=== PATIENT | male | born 1975 | race African-American/Black ===

== ENCOUNTER 2019-07-03 22:52 | Emergency (ER) | payer OTHER ==
[2019-07-03] MEDS ORDERED: oxyCODONE/Acetamin 5/325 MG* TAB PO ONE (23:47)
--- NOTE | 2019-07-03 23:48 | ED ---
Lower Extremity - HPI Summary HPI Summary: Pt is a 43 y/o M presenting to the ED with a chief complaint of RLE pain. He states he fell down the stairs at 22:40 and he is reporting RLE pain and edema. He denies fever. - History of Current Complaint Chief Complaint: EDExtremityLower Stated Complaint: POSS BROKEN LEG PER PT Time Seen by Provider: 07/03/19 23:02 Hx Obtained From: Patient Mechanism Of Injury: Fall From A Standing Position Onset of Pain: Immediate, Post Accident, Prior to Arrival Onset/Duration: Still Present Severity Initially: Severe Severity Currently: Severe Pain Intensity: 10 Pain Scale Used: 0-10 Numeric Timing: Constant, Lasting Hours Location: Is Discrete @ - RLE Associated Signs And Symptoms: Positive: Swelling. Negative: Fever Aggravating Factor(s): Movement Alleviating Factor(s): Nothing Able to Bear Weight: No - Allergies/Home Medications Allergies/Adverse Reactions: Allergies Allergy/AdvReac Type Severity Reaction Status Date / Time No Known Allergies Allergy Verified 07/03/19 22:57 PMH/Surg Hx/FS Hx/Imm Hx Previously Healthy: Yes Endocrine/Hematology History: Denies: Hx Diabetes Cardiovascular History: Denies: Hx Hypertension - Immunization History Immunizations Up to Date: Yes Infectious Disease History: No Infectious Disease History: Denies: Traveled Outside the [place] in Last 30 Days - Family History Known Family History: Negative: Diabetes - Social History Alcohol Use: None Hx Substance Use: Yes Substance Use Type: Reports: Marijuana Hx Tobacco Use: No Smoking Status (MU): Never Smoked Tobacco Review of Systems Negative: Fever Positive: Myalgia, Edema All Other Systems Reviewed And Are Negative: Yes Physical Exam - Summary Physical Exam Summary: General: Well-developed, Well-nourished male. Appears in moderate discomfort. HEENT: Normocephalic, Atraumatic. Eyes: Conjuctiva normal, PERRL. Oropharynx: Clear, mucous membranes moist, (-) exudates. Neck: Soft, FROM, (-) lymphadenopathy, (-) thyromegaly, (-) JVD. Cardiovascular: Normal sinus rhythm, (-) murmur. Lungs: Clear to auscultation bilaterally (-) wheezes, (-) rales, (-) rhonchi. Abdomen: Soft, non-tender, non-distended, (-) organomegaly, normal bowel sounds. Back: (-) CVA tenderness Extremities: RLE demonstrates medial edema & tenderness proximal to medial malleolus. Decreased ROM of ankle. Nml pulses. Nml capillary refill. Skin: Warm, dry, (-) rash. Neuro: Alert and oriented x3, no focal deficits. Psychiatric: Mood normal, affect normal. Triage Information Reviewed: Yes Vital Signs On Initial Exam: Initial Vitals Temp Pulse Resp BP Pulse Ox 97.6 F 94 16 116/100 100 07/03/19 22:54 07/03/19 22:54 07/03/19 22:54 07/03/19 22:54 07/03/19 22:54 Vital Signs Reviewed: Yes Procedures - Sedation Patient Received Moderate/Deep Sedation with Procedure: No - Splinting Right Lower Extremity Location: RLE Hand-Made Type: fiberglass - 4 inch Splint: posterior splint Pre-Proc Neuro Vasc Exam: normal Post-Proc Neuro Vasc Exam: normal Splint Applied by Provider: Miryam Baker - Vital Signs Vital Signs Temp Pulse Resp BP Pulse Ox 07/03/19 22:54 97.6 F 94 16 116/100 100 - Laboratory Lab Statement: Any lab studies that have been ordered have been reviewed, and results considered in the medical decision making process. - Radiology R ankle XR Radiology Interpretation Completed By: ED Physician Summary of Radiographic Findings: Fracture of the distal tibia. No angulation. Mild displacement. Pending official radiology report. Lower Extremity Course/Dx - Course Course Of Treatment: 43 y/o M presents w/ R leg pain after fall. Pt slipped down stairs. Severe pain, cannot bear weight. No blood thinners, no other injury , no head injury, no LOC. XR demonstrates distal tibia fracture. Discussed w/ orthopedics. Posterior splint applied. Pt is non-weight bearing on crutches. f/ u with orthopedics in the morning. Percocet given for pain. - Diagnoses Provider Diagnoses: Fracture of distal end of tibia Discharge ED - Sign-Out/Discharge Documenting (check all that apply): Patient Departure - Discharge Plan Condition: Stable Disposition: HOME Prescriptions: oxyCODONE/Acetamin 5/325 MG* [Percocet 5/325 TAB*] 2 tab PO Q6H PRN #20 tab MDD 8 PRN Reason: severe pain Patient Education Materials: Splint Care (ED) Referrals: [facility] [Outside] Xiomy Leonard MD [Medical Doctor] - Additional Instructions: Call Dr. Leonard's office tomorrow morning at 8:00am to make a follow-up appointment as soon as possible. Please follow up with your primary care physician within three days. Please return to ED for any new or worsening symptoms. - Billing Disposition and Condition Condition: STABLE Disposition: Home - Attestation Statements Document Initiated by Scribe: Yes Documenting Scribe: Lisa Sweet Provider For Whom Dayana is Documenting (Include Credential): Miryam Baker MD. Scribe Attestation: I, Lisa Sweet, scribed for Miryam Baker MD. on 07/04/19 at 0218. Scribe Documentation Reviewed: Yes Provider Attestation: The documentation as recorded by the scribe, Lisa Sweet accurately reflects the service I personally performed and the decisions made by me, Miryam Baker MD. Status of Scribe Document: Viewed Consult Consult: [id number] Leonard about the pts presenting condition who recommends a well-padded splint and calling the office in the morning.
[2019-07-04 00:58] VITALS: BP 131/80
== END 2019-07-04 00:51 | disposition home or self-care (01) ==
LOC: ED 22:52
DX: S82.301A Unspecified fracture of lower end of right tibia, initial encounter for closed fracture (principal); R60.0 Localized edema; W10.9XXA Fall (on) (from) unspecified stairs and steps, initial encounter; Y92.9 Unspecified place or not applicable
CPT/HCPCS: 99282; A9270-GY

== ENCOUNTER 2019-07-08 06:31 | Day surgery (SDC) | payer OTHER ==
[~2019-07-08 06:31] MED LIST: Acetaminophen TAB* 325 MG PO ONE; Buffered Lidocaine 1% SYRIN* 1 ML/SYRINGE INTRADERM ONE; Famotidine IV* 10 MG/ML 2 ML (20 mg) IV ONE; Gabapentin CAP(*) 300 MG PO ONE; Lactated Ringers 1000 ML Bag* 1,000 ML IV SCH
[2019-07-08] MEDS ORDERED: Acetaminophen TAB* 325 MG ONE (07:46)
[2019-07-08] MEDS ORDERED: Buffered Lidocaine 1% SYRIN* 1 ML/SYRINGE INTRADERM ONE (07:46)
[2019-07-08] MEDS ORDERED: ceFAZolin 2 GM in NS PREMIX(*) 2 GM/100 ML BAG IVPB ONE (07:46)
[2019-07-08] MEDS ORDERED: Famotidine IV* 10 MG/ML 2 ML (20 mg) ONE (07:46)
[2019-07-08] MEDS ORDERED: Gabapentin CAP(*) 300 MG ONE (07:46)
[2019-07-08] MEDS ORDERED: fentaNYL* 50 MCG/ML 2 ML VIAL (100 MCG VIAL) ONE (08:09)
[2019-07-08] MEDS ORDERED: Midazolam* 1 MG/ML 2 ML VIAL (2 MG) ONE ×2 (08:09→09:30)
[2019-07-08] MEDS ORDERED: Bupivacaine 0.5%* 50 ML MDV VIAL ONE (09:06)
[2019-07-08] MEDS ORDERED: Ondansetron INJ* 2 MG/ML VIAL ONE (09:17)
[2019-07-08] MEDS ORDERED: Ketorolac INJ* 30 MG/ML 1 ML VIAL ONE (09:17)
[2019-07-08] MEDS ORDERED: Succinylcholine* 20 MG/ML 10 ML VIAL ONE (09:17)
[2019-07-08] MEDS ORDERED: Cisatracurium* 2 MG/ML MDV 5 ML ONE (09:17)
[2019-07-08] MEDS ORDERED: Propofol* 10 MG/ML 20 ML BTL ONE ×2 (09:17→10:34)
[2019-07-08] MEDS ORDERED: Dexamethasone IV* 4 MG/ML 1 ML (4 MG) ONE (09:17)
[2019-07-08] MEDS ORDERED: Scopolamine 1.5 mg* PATCH ONE (09:25)
[2019-07-08] MEDS ORDERED: PROCHLORPERAZINE INJ 5 MG/ML 2 ML VIAL IV PRN (09:40)
[2019-07-08] MEDS ORDERED: Naloxone* 0.4 MG/ML 1 ML VIAL IV PRN (09:40)
[2019-07-08] MEDS ORDERED: Ondansetron INJ* 2 MG/ML VIAL IV PRN (09:40)
[2019-07-08] MEDS ORDERED: fentaNYL* 50 MCG/ML 2 ML VIAL (100 MCG VIAL) IV PRN (09:40)
[2019-07-08] MEDS ORDERED: Acetaminophen TAB* 325 MG PO PRN (09:40)
[2019-07-08] MEDS ORDERED: DiMENhydriNATE IV* 50 MG/ML VIAL IV PUSH PRN (09:40)
[2019-07-08] MEDS ORDERED: diPHENhydraMINE IV* 50 MG/ML 1 ml VIAL (BENADRYL) IV PRN (09:40)
[2019-07-08] MEDS ORDERED: HYDROcodone/ACETAMIN 5-325 MG* 1 TAB PO PRN (09:40)
[2019-07-08] MEDS ORDERED: ROPIVACAINE 5 MG/ML 30 ML BTL (0.5%) ONE (11:58)
[2019-07-08] MEDS ORDERED: HYDROmorphone TAB* 2 MG PO ONE (12:04)
[2019-07-08 13:59] VITALS: BP 164/109
--- NOTE | 2019-07-08 20:55 | OP ---
DATE OF OPERATION: 07/08/19 - [facility] DATE OF : 71 SURGEON: Brooks Fu MD HOSPITALITY COORDINATOR: Jeremías Goodwin PA-C PRE-OP DIAGNOSIS: Right distal tibia fracture. POST-OP DIAGNOSIS: Right distal tibia fracture. OPERATIVE PROCEDURE: Percutaneous plating, right medial distal tibia with the Arthrex anatomic plate. DESCRIPTION OF PROCEDURE: The patient was taken to the operating room where a 4 -cm incision was made longitudinally at the right medial malleolus. We then used a flexible Greenfield elevator to raise the sub-periosteum off the medial tibial crest to position 5 to 6 cm above the top of the fracture fragment. We then slit the anatomic stainless steel plate under the periosteum to its appropriate distance. We put 2 screws distally to hold the plate in its longitudinal position as well as in the rotation position. We then percutaneously placed locking screws alternating holes of the entire length of the plate. X-rays intraoperatively at this point showed satisfactory alignment of the tibia. We completed the fixation with distal locking screws. The distal wound was irrigated and closed with Monocryl and gisella. The proximal small stab wounds were closed with Monocryl and a staple as well. A plaster splint was then applied. [id number]/[facility] #: [id number] DARIO
[2019-07-11] MEDS ORDERED: Scopolamine PATCH Remove* 1 NOTE MISC PATCH OFF ONE (09:41)
== END 2019-07-08 14:18 | disposition home or self-care (01) ==
LOC: OR 06:31
PROVIDERS: ATTEND Orthopaedic Surgery
DX: S82.871A Displaced pilon fracture of right tibia, initial encounter for closed fracture (principal); W00.1XXA Fall from stairs and steps due to ice and snow, initial encounter; Y92.9 Unspecified place or not applicable; G89.18 Other acute postprocedural pain
CPT/HCPCS: 76000; A9270-GY; C1713; J0330; J0690; J1100; J1885; J2250; J2405; J2704; J2795; J3010; J3490